=== PATIENT | male | born 1955 | race Caucasian/White ===

== ENCOUNTER 2023-01-01 10:22 | Outpatient (CLI) | payer MEDICARE, OTHER ==
[2023-01-01 12:45] VITALS: BP 144/80
--- NOTE | 2023-01-01 12:45 | SLEEP CARE CONSULTATION ---
Information from patient questionnaire entered by Marylin Majano. I have reviewed and concur with the information entered by Marylin Majano. This document represents the service I personally performed and the decisions made by me, Norris Grace MD, [facility]. History of Present Illness Service Date and Time: 01/01/2023 1022 Reason for Visit: New patient Chief Complaint: reports: Other (UPDATE SUPPLIES) Usual bedtime: 9PM Time it takes to fall asleep: 15MIN Snores at night: Yes Observed to quit breathing while asleep: Yes Sleeps alone due to snoring: No Number of times waking at night: 1-2 Reasons for waking at night: reports: Bathroom Toss, Turn, or Twitch while sleeping: Yes Recalls having dreams: Yes Usually gets out of bed at: 830AM Feels refreshed in the morning: Yes Morning headache: No Sleepy or fatigued during the day: No Ever fallen asleep while driving: No Takes day naps: Yes Dreams during day naps: Yes Prior sleep studies: Yes Year and Where: [facility] Additional HPI information: I had the pleasure of seeing Mr. Olson today regarding obstructive sleep apnea-hypopnea. As you know, he is a 67-year-old gentleman who was originally diagnosed with the sleep-disordered breathing at the [facility] [place] about 15 years ago. He said he refused to use a CPAP at the time. He then had another in-laboratory polysomnography at [facility] in [place] in 2018. The sleep study showed severe obstructive sleep apnea-hypopnea with an AHI of 36.7 and sherri oxygen saturation of 79%. He was prescribed a CPAP set at 10 cmH2O. He used it for 2 3 years then the machine broke. His gave him a [employer]pir[employer] DreamStation 2 autoCPAP that she got as a replace to her recalled DreamStation 1. The device is set t 5 15 cmH2O. He uses every night and all night. The compliance data show usage in 30 out of the past 30 nights, averaging 9.3 hours a night. He wears a full face mask because he breathes through his mouth at night. He got his machine from [employer] but never any supplies from it. He finds the treatment very beneficial. - Parasomnia Symptoms Ever been unable to move upon waking from sleep: No Walks in sleep: No Talks in sleep: No Ever acted out dreams in sleep: No Ever felt weak in the knees when startled or emotional: No Bothered by creepy, crawly, restless sensations in legs: No Problems with memory or concentration: Yes Subjective Initial [place] Sleepiness Scale score: 4 (12/29/22) Past Medical History Past Medical History: reports: Diabetes Social History The patient's occupation is a RE. Patient is and lives in [place]. Have you smoked in the past 12 months: No Alcohol use: No Caffeine use: Yes Caffeine amount and frequency: 2-3 DAILY Family History Family history of sleep disordered breathing: No Allergies and Home Medications Known drug allergies: No Drug allergies reviewed: Yes Home medication list reviewed: Yes Review of Systems Weight gain over past 5 years: 0 Weight loss over past 5 years: 0 Cardiovascular: reports: high blood pressure Respiratory: denies: shortness of breath, wheeze, sputum production, chronic cough, other Gastrointestinal: denies: heartburn, difficulty swallowing, nausea, vomitting, diarrhea, abdominal pain, other Urinary: denies: incontinence, frequency, urgency, impotence, other Neurological: denies: headaches, seizure, head trauma, disorientation, speech dysfunction, gait or balance problems, fainting or unconsciousness, other Psychiatric: denies: Attention Deficit Hyperactivity, anxiety, depression, mood disorder, claustrophobia, other Ear/Nose/Throat: reports: wisdom teeth removed Musculoskeletal: denies: joint pain, neck pain, back pain, joint swelling, muscle pain or cramping, mobility problems, other Immunologic: denies: sneezing, rash, itching, allergies to food or environment, other Physical Exam Vital signs obtained and entered by: MARYLIN Romeo MA Blood Pressure: 144/80 (LEFT ARM) Cuff size: regular Heart Rate: 75 O2 Saturation: 94 Height: 6 ft Weight: 257 lb 12.8 oz Body Mass Index: 34.9 BMI Classification: Obese Neck circumference: 18.5 Mood/affect: normal HEENT: No craniofacial malformation Nostrils: patent to airflow Turbinates: normal Septum: midline Mouth and throat: narrow oropharynx Soft palate: long Hard palate: normal Uvula: normal Uvula visualization: 25% Mallampati Class III Tongue: normal in size Tonsils: small Chin and jaw: normal size and position Neck: normal w/o lymphadenopathy or thyromegaly Heart: regular rate and rhythm Lungs: clear bilaterally Extremities: no edema or clubbing Neurologic: intact Impression and Plan IMPRESSION: 1. Obstructive Sleep Apnea-Hypopnea Syndrome, severe, as previously diagnosed. The patient has excellent treatment compliance. He finds the positive airway pressure therapy very helpful. The current pressure setting appears effective and comfortable. Narrow oropharynx and obesity are common predisposing factors for obstructive sleep apnea-hypopnea syndrome. No adjustment is necessary today. He does need supplies through a local durable medical supplier. His uses [employer] and he would like to use the same company. Plan: 1. Continue with autoCPAP set at 5 15 cmH2O 2. Prescription made for supplies through [employer]. 3. Try to lose weight. 4. Return for a follow up in 4 months when he is eligible for a new machine. Prescriptions: Device supplies Follow up with Sleep Care in: 6 months Visit Type: In Office Time Spent with Patient (minutes): 15 Provider Statement: I spent 100% of the Face to Face Visit with the patient with greater than 50% spent counseling the patient and coordination of care.
== END 2023-01-01 10:23 | disposition home or self-care (01) ==
LOC: SC 10:22
PROVIDERS: ATTEND Internal Medicine Pulmonary Disease
DX: G47.33 Obstructive sleep apnea (adult) (pediatric) (principal); E66.9 Obesity, unspecified; Z68.34 Body mass index [BMI] 34.0-34.9, adult
CPT/HCPCS: 99202; G0463; 99212

== ENCOUNTER 2023-07-02 11:06 | Outpatient (CLI) | payer MEDICARE, OTHER ==
--- NOTE | 2023-07-02 21:17 | SLEEP CARE CONSULTATION ---
Information from patient questionnaire entered by Kota Majano. I have reviewed and concur with the information entered by Kota Majano. This document represents the service I personally performed and the decisions made by me, Norris Grace MD, [facility]. History of Present Illness Service Date and Time: 07/02/2023 1106 Reason for follow up: six month (F/U), other (DUE FOR A NEW MACHINE) Prior sleep studies: Yes Year and Where: [facility] additional information: Mr. Olson was diagnosed to have severe obstructive sleep apnea-hypopnea syndrome and returns today for follow up of CPAP therapy. The patient purchased the device from [employer] but is getting supplies online. He uses the ImperatorStation 2 nightly and all through the night. The compliance report shows that he uses the device 364 nights out of the past 365 nights, averaging 9.5 hours a night. He complains of no particular problem with the device such as soreness on the face, dry nose, epistaxis, nasal congestion or headache. He thinks that the pressure of 5 - 15 cmH2O is comfortable. On the CPAP therapy he notices improvement in his sleep quality, and that he wakes up feeling fresher in the morning and more awake/alert during the day. His notices no snore at all. [place] Sleepiness Scale score is 2. The average residual AHI is 4.0. Sleep Study - Results Prior sleep studies: Yes Year and Where: [facility] Subjective Initial [place] Sleepiness Scale score: 4 (12/29/22) Current [place] Sleepiness Scale score: 2 (07/02/23) Allergies and Home Medications Drug allergies reviewed: Yes Home medication list reviewed: Yes Allergy and home medication list: Allergies adhesive Allergy (Verified 06/29/23 11:05) corn syrup Allergy (Verified 06/29/23 11:05) gabapentin Allergy (Verified 06/29/23 11:05) iodine Allergy (Verified 06/29/23 11:05) latex Allergy (Verified 06/29/23 11:05) red dye Allergy (Verified 06/29/23 11:05) Sulfa (Sulfonamide Antibiotics) Allergy (Verified 06/29/23 11:05) amoxicillin Adverse Reaction (Verified 06/29/23 11:05) sulfite Adverse Reaction (Verified 06/29/23 11:05) Review of Systems Review of systems same as previous: Yes Physical Exam Vital signs obtained and entered by: KOTA Romeo MA Blood Pressure: 136/78 (LEFT ARM) Cuff size: regular Heart Rate: 62 O2 Saturation: 97 Height: 6 ft Weight: 251 lb Body Mass Index: 34.0 BMI Classification: Obese Impression and Plan IMPRESSION: 1. Obstructive Sleep Apnea-Hypopnea Syndrome, severe, with the patient continuing to do well on nasal CPAP therapy. He has excellent compliance and significant clinical benefits. The current pressure appears effective and comfortable. Overall, he is very satisfied with treatment and plans to continue with it long-term. Because the CPAP is now older than the useful life of 5 years, I will order the patient a new one and make it an autoCPAP set between 5 and 15 cmH2O. PLAN: 1. Continue with autoCPAP set at 5 - 15 cm H2O. 2. Prescription made for an autoCPAP, heated humidifier, and related supplies through [employer]. 3. Try to lose weight. 4. Return for follow up after one month of using the CPAP. Prescriptions: Auto CPAP Follow up with Sleep Care in: 1-2 months Visit Type: In Office Time Spent with Patient (minutes): 15 Provider Statement: I spent 100% of the Face to Face Visit with the patient with greater than 50% spent counseling the patient and coordination of care.
[2023-07-02 21:21] VITALS: BP 136/78; O2SAT 97
== END 2023-07-02 11:07 | disposition home or self-care (01) ==
LOC: SC 11:06
PROVIDERS: ATTEND Internal Medicine Pulmonary Disease
DX: G47.33 Obstructive sleep apnea (adult) (pediatric) (principal); E66.9 Obesity, unspecified; Z68.34 Body mass index [BMI] 34.0-34.9, adult
CPT/HCPCS: 99212; G0463

== ENCOUNTER 2023-08-27 10:45 | Outpatient (CLI) | payer MEDICARE, OTHER ==
--- NOTE | 2023-08-27 23:07 | SLEEP CARE CONSULTATION ---
Information from patient questionnaire entered by Kota Majano. I have reviewed and concur with the information entered by Kota Majano. This document represents the service I personally performed and the decisions made by me, Norris Grace MD, [facility]. History of Present Illness Service Date and Time: 08/27/2023 1045 Reason for follow up: first compliance Equipment type: CPAP (RESMED NEED MACHINE) Prior sleep studies: Yes Year and Where: [facility] additional information: Mr. Olson was diagnosed to have severe obstructive sleep apnea-hypopnea syndrome and returns today for follow up of CPAP therapy. The patient recently acquired a new [employer]Med AirSense 11 from [employer]. He wears a full face mask. He uses the device nightly and all through the night. The compliance report shows that he uses the device 28 nights out of the past 30 nights, averaging 10 hours a night. He complains of no particular problem with the device such as soreness on the face, dry nose, epistaxis, nasal congestion or headache. He thinks that the pressure of 5 - 15 cmH2O is comfortable but last night it went up too high and caused mask air leak. On the CPAP therapy he notices improvement in his sleep quality, and that he wakes up feeling fresher in the morning and more awake/alert during the day. His notices no snore at all. [place] Sleepiness Scale score is 2. The average residual AHI is 1.6; and average air leak is 4.7. The 90th percentile pressure is 9.8 cmH2O. Sleep Study - Results Prior sleep studies: Yes Year and Where: [facility] CPAP Compliance Data - Data Reviewed with Patient Average duration of nightly device use: 9HRS 58MINS Compliance rate %: 93 (07/10/23-08/08/23) Current pressure setting (cmH2O): 5-15 Average residual AHI: 1.6 Subjective Initial [place] Sleepiness Scale score: 4 (12/29/22) Allergies and Home Medications Drug allergies reviewed: Yes Home medication list reviewed: Yes Allergy and home medication list: Allergies adhesive Allergy (Verified 08/22/23 11:24) corn syrup Allergy (Verified 08/22/23 11:24) gabapentin Allergy (Verified 08/22/23 11:24) iodine Allergy (Verified 08/22/23 11:24) latex Allergy (Verified 08/22/23 11:24) red dye Allergy (Verified 08/22/23 11:24) Sulfa (Sulfonamide Antibiotics) Allergy (Verified 08/22/23 11:24) amoxicillin Adverse Reaction (Verified 08/22/23 11:24) sulfite Adverse Reaction (Verified 08/22/23 11:24) Review of Systems Review of systems same as previous: Yes Physical Exam Vital signs obtained and entered by: KOTA Romeo MA Blood Pressure: 124/76 (LEFT ARM) Cuff size: regular Heart Rate: 63 O2 Saturation: 96 Height: 6 ft Weight: 245 lb 9.6 oz Body Mass Index: 33.3 BMI Classification: Obese Impression and Plan IMPRESSION: 1. Obstructive Sleep Apnea-Hypopnea Syndrome, severe, with the patient continuing to do well on nasal CPAP therapy. He has excellent compliance and significant clinical benefits. The current pressure appears effective and comfortable. Overall, he is very satisfied with treatment and plans to continue with it long-term. To prevent the pressure from going up too high, I will set the pressure range to 5 -10 cmH2O. PLAN: 1. Pressure set manually on the machine to 5 - 10 cm H2O. Auto stop turned on per his request. 2. Try to lose weight 3. Return in one year for follow up or earlier if there is any problem with the treatment. Follow up with Sleep Care in: 1 year Visit Type: In Office Time Spent with Patient (minutes): 15 Provider Statement: I spent 100% of the Face to Face Visit with the patient with greater than 50% spent counseling the patient and coordination of care.
[2023-08-27 23:10] VITALS: BP 124/76; O2SAT 96
== END 2023-08-27 10:46 | disposition home or self-care (01) ==
LOC: SC 10:45
PROVIDERS: ATTEND Internal Medicine Pulmonary Disease
DX: G47.33 Obstructive sleep apnea (adult) (pediatric) (principal); E66.9 Obesity, unspecified; Z68.33 Body mass index [BMI] 33.0-33.9, adult
CPT/HCPCS: 99212; G0463